=== PATIENT | female | born 2000 | race Caucasian/White ===

== ENCOUNTER 2024-08-19 13:12 | Emergency (ER) | payer SELFPAY ==
[2024-08-19 13:43] VITALS: TEMP 97.2
[2024-08-19] MEDS ORDERED: OFIRMEV IV STA (13:53)
[2024-08-19 14:10] LABS: Absolute Neutrophil Ct (ANC) 3.19 x10^3/uL (1.56-6.13); Basophil (Absolute #) 0.06 x10^3/uL (0.01-0.08); Eosinophil (Absolute #) 0.24 x10^3/uL (0.04-0.36); Hematocrit 39.6 % (34.1-44.9); Hemoglobin 12.6 g/dL (11.2-15.7); IMMATURE GRAN # 0.01 x10^3u/L (0.001-0.031); IMMATURE GRAN % 0.2 % (0.001-0.429); Lymphocytes % 33.1 % (19.3-51.7); Mean Cell Volume 89.6 fL (79.4-94.8); Mean Corpuscular Hemoglobin 28.5 pg (25.6-32.2); Mean Corpuscular Hgb Concent. 31.8 g/dL (32.2-35.5); Mean Platelet Volume 12.3 fL (9.4-12.3); Monocyte (Absolute #) 0.54 x10^3/uL (0.24-0.86); Monocytes % 8.9 % (4.7-12.5); Neutrophil % 52.8 % (34.0-71.1); Platelet Count 152 x10^3/uL (182-369); Red Blood Count 4.42 x10^6/uL (3.93-5.22); Red Cell Distribution Width 12.5 % (11.7-14.4)
[2024-08-19] MEDS ORDERED: Compazine 10 MG/2 ML ONE (14:15)
[2024-08-19] MEDS ORDERED: Sodium Chloride 0.9% 1000 ML 1,000 ML ONE (14:15)
[2024-08-19] MEDS: Sodium Chloride 0.9% 1000 ML 1,000 ML IV SCH (14:19)
[2024-08-19] MEDS: Compazine 10 MG/2 ML IV ONE (14:21)
--- NOTE | 2024-08-19 14:21 | ERPHSYRPT ---
- History of Present Illness Time Seen by Provider: 08/19/24 13:40 Source: patient Exam Limitations: no limitations Patient Subjective Stated Complaint: Pt states "I had a headache yesterday and passed out. I went to the clinic and they said if I passed out again to go to the er. I passed out in my bedroom around noon." Triage Nursing Assessment: Pt presented alert and oriented X 3, skin pwd. Pt ambulates with an upright steady gait, pt playing on her phone in waiting room. PT able to speak in clear full senteneces. Pt resting comfortably on the bed. Physician History: 23-year-old female no significant past medical history presents to emergency department for evaluation of headache and syncope. Patient states she was at work experiencing a headache and had a syncopal episode. Patient states she came around after couple minutes. Patient was not sent to seek medical attention as they were low on staff coverage. Patient states she was getting ready for work this morning and had a second episode. Patient woke up on the floor. No neck pain no injuries. Patient complains of the same headache she has had for the past 2 days. Pain described as an ache that is localized to the back of her head. No associated chest pain or shortness of breath. No nausea vomiting or diaphoresis. Patient otherwise feels well. She voices no other complaints or concerns at this time. Portions of this note were created with voice recognition technology. There may be grammatical, spelling, punctuation or sound alike errors t Timing/Duration: yesterday Severity: moderate Modifying Factors: Improves With: nothing Associated Symptoms: headaches Allergies/Adverse Reactions: latex Allergy (Severe, Verified 08/19/24 13:49) sulfamethoxazole [From Bactrim] Allergy (Severe, Verified 08/19/24 13:49) trimethoprim [From Bactrim] Allergy (Severe, Verified 08/19/24 13:49) Hx Tetanus, Diphtheria Vaccination/Date Given: No Hx Influenza Vaccination/Date Given: Yes Hx Pneumococcal Vaccination/Date Given: No Immunizations Up to Date: No Travel Risk - International Travel Have you traveled outside of the country in past 3 weeks: No - Emerging Infectious Disease Are you exhibiting symptoms associated with any current EIDs: Yes Symptoms: Headaches/Body Aches/ - Review of Systems Constitutional: No Symptoms, No Fever, No Chills Eyes: No Symptoms Ears, Nose, & Throat: No Symptoms Respiratory: No Symptoms, No Cough, No Dyspnea Cardiac: No Symptoms, No Chest Pain, No Edema, No Syncope Abdominal/Gastrointestinal: No Symptoms, No Abdominal Pain, No Nausea, No Vomiting, No Diarrhea Genitourinary Symptoms: No Symptoms, No Dysuria Musculoskeletal: No Symptoms, No Back Pain, No Neck Pain Skin: No Symptoms, No Rash Neurological: No Symptoms, No Dizziness, No Focal Weakness, No Sensory Changes Psychological: No Symptoms Endocrine: No Symptoms Hematologic/Lymphatic: No Symptoms Immunological/Allergic: No Symptoms All Other Systems: Reviewed and Negative - Past Medical History Pertinent Past Medical History: Yes Psycho-Social History: Depression - Past Surgical History Past Surgical History: No - Female History Hx Last Menstrual Period: 08/11/2024 Hx Now: No - Social History Smoking Status: Never smoker Exposure to second hand smoke: Yes Drug Use: none - Social Determinants of Health Will the patient participate in the screening: Declined to provide - Nursing Vital Signs Nursing Vital Signs: Initial Vital Signs Temperature 97.2 F 08/19/24 13:37 Pulse Rate 64 08/19/24 13:37 Respiratory Rate 18 08/19/24 13:37 Blood Pressure 105/69 08/19/24 13:37 O2 Sat by Pulse Oximetry 100 08/19/24 13:37 Pain Scale Pain Intensity 0 - Physical Exam General Appearance: no apparent distress, alert Eye Exam: PERRL/EOMI, eyes nml inspection Ears, Nose, Throat Exam: normal ENT inspection, TMs normal, pharynx normal, moist mucous membranes Neck Exam: normal inspection, non-tender, supple, full range of motion Respiratory Exam: normal breath sounds, lungs clear, airway intact, No respirato ry distress Cardiovascular Exam: regular rate/rhythm, normal heart sounds, normal peripheral pulses Gastrointestinal/Abdomen Exam: soft, normal bowel sounds, No tenderness, No mass Back Exam: normal inspection, normal range of motion, No CVA tenderness, No vertebral tenderness Extremity Exam: normal inspection, normal range of motion, pelvis stable Neurologic Exam: alert, oriented x 3, cooperative, normal mood/affect, sensation nml, No motor deficits Skin Exam: normal color, warm, dry, No rash Lymphatic Exam: No adenopathy SpO2 Interpretation: normal SpO2: 100 O2 Delivery: Room Air - Course Nursing assessment & vital signs reviewed: Yes EKG Interpreted by Me: RATE ([id number]), Sinus Rhythm, NORMAL AXIS, NORMAL INTERVALS, NORMAL QRS Ordered Tests: Active Orders 24 hr Category Date Time Status AMA [Release AMA] OM.NOW Care 08/19/24 19:22 Active Automobile Mechanic Motor STAT Care 08/19/24 13:52 Active EKG-ER Only STAT Care 08/19/24 13:51 Active IV Insertion STAT Care 08/19/24 13:51 Active HEAD WITHOUT CONTRAST [CT] Stat Exams 08/19/24 13:50 Taken CBC W DIFF Stat Lab 08/19/24 14:00 Completed CMP Stat Lab 08/19/24 14:00 Completed CULTURE,URINE Stat Lab 08/19/24 16:30 Received ETHYL ALCOHOL Stat Lab 08/19/24 14:00 Completed HCG QUALITATIVE, URINE Stat Lab 08/19/24 16:30 Completed TROPONIN Q4H Lab 08/19/24 14:00 Completed TROPONIN Q4H Lab 08/19/24 17:20 Completed TROPONIN Q4H Lab 08/19/24 22:00 Ordered TSH [TSH, 3RD Generation] Stat Lab 08/19/24 14:00 Completed UA W/RFX UR CULTURE Stat Lab 08/19/24 16:30 Completed Urine Triage Profile Stat Lab 08/19/24 16:30 Completed Medication Summary Generic Name Dose Route Start Last Admin Trade Name Freq PRN Reason Stop Dose Admin Sodium Chloride 1,000 mls @ 100 mls/hr 08/19/24 14:00 08/19/24 14:19 Sodium Chloride 0.9% 1000 Ml IV 09/18/24 13:59 100 mls/hr .Q10H ISAIAH Administration Discontinued Medications Generic Name Dose Route Start Last Admin Trade Name Freq PRN Reason Stop Dose Admin Acetaminophen 1,000 mg in 100 mls @ 400 mls/hr 08/19/24 18:57 08/19/24 18:58 Ofirmev IV 08/19/24 19:11 400 mls/hr 1HRPRIOR ONE Administration Acetaminophen Confirm 08/19/24 18:55 Ofirmev Administered 08/19/24 18:56 Dose 100 mls @ ud IV .STK-MED ONE Ketorolac Tromethamine 30 mg 08/19/24 18:53 08/19/24 18:55 Ketorolac Tromethamine 30 Mg/Ml Inj IV 08/19/24 18:54 30 mg STAT ONE Administration Ketorolac Tromethamine Confirm 08/19/24 18:55 Ketorolac Tromethamine 30 Mg/Ml Inj Administered 08/19/24 18:56 Dose 30 mg .ROUTE .STK-MED ONE Prochlorperazine Edisylate 10 mg 08/19/24 13:52 08/19/24 14:21 Prochlorperazine Edisylate 10 Mg/2 Ml Vial IV 08/19/24 13:53 10 mg STAT ONE Administration Prochlorperazine Edisylate Confirm 08/19/24 14:15 Prochlorperazine Edisylate 10 Mg/2 Ml Vial Administered 08/19/24 14:16 Dose 10 mg .ROUTE .[employer] ONE Lab/Rad Data: Laboratory Result Diagrams 08/19/24 14:00 08/19/24 14:00 Laboratory Results 08/19/24 08/19/24 08/19/24 Range/Units 17:20 16:30 16:30 WBC (3.98-10.04) x10^3/uL RBC (3.93-5.22) x10^6/uL Hgb (11.2-15.7) g/dL Hct (34.1-44.9) % MCV (79.4-94.8) fL MCH (25.6-32.2) pg MCHC (32.2-35.5) g/dL RDW (11.7-14.4) % Plt Count (182-369) x10^3/uL MPV (9.4-12.3) fL Gran % (34.0-71.1) % Immature Gran % (Auto) (0.001-0.429) % Nucleat RBC Rel Count (0.00-0.2) % Eos # (Auto) (0.04-0.36) x10^3/uL Immature Gran # (Auto) (0.001-0.031) x10^3u/L Absolute Lymphs (auto) (1.18-3.74) x10^3/uL Absolute Monos (auto) (0.24-0.86) x10^3/uL Absolute Nucleated RBC (0.00-0.012) x10^3u/L Lymphocytes % (19.3-51.7) % Monocytes % (4.7-12.5) % Eosinophils % (0.7-5.8) % Basophils % (0.1-1.2) % Absolute Granulocytes (1.56-6.13) x10^3/uL Basophils # (0.01-0.08) x10^3/uL Sodium (135-145) mmol/L Potassium (3.5-5.1) mmol/L Chloride (98-107) mmol/L Carbon Dioxide (22-30) mmol/L Anion Gap (5-15) MEQ/L BUN (7-17) mg/dL Creatinine (0.52-1.04) mg/dL Estimated GFR ML/MIN Glucose (74-106) mg/dL Calcium (8.4-10.2) mg/dL Total Bilirubin (0.2-1.3) mg/dL AST (14-36) U/L ALT (0-35) U/L Alkaline Phosphatase (38-126) U/L Troponin I < 0.012 (0.000-0.033) ng/mL Serum Total Protein (6.3-8.2) g/dL Albumin (3.5-5.0) g/dL TSH 3rd Generation (0.470-4.680) mIU/L Urine Color (Yellow) Urine Appearance (Clear) Urine pH (4.6-8.0) Ur Specific [place] (1.005-1.030) Urine Protein (Negative) Urine Glucose (UA) (Negative) mg/dL Urine Ketones (Negative) Urine Blood (Negative) Urine Nitrite (Negative) Urine Bilirubin (Negative) Urine Urobilinogen (0.2) mg/dL Ur Leukocyte Esterase (Negative) U Hyaline Cast (Auto) (0-2) /LPF Urine Microscopic RBC (0-5) /HPF Urine Microscopic WBC (0-5) /HPF Ur Epithelial Cells (None Seen) /HPF Urine Bacteria (None Seen) /HPF Urine Culture Reflexed (NO) Urine HCG, Qual NEGATIVE (NEGATIVE) Urine Opiates Level NEGATIVE (NEGATIVE) Ur Methadone NEGATIVE (NEGATIVE) Urine Barbiturates NEGATIVE (NEGATIVE) Ur Phencyclidine (PCP) NEGATIVE (NEGATIVE) Urine Amphetamine NEGATIVE (NEGATIVE) U Benzodiazepine Level NEGATIVE (NEGATIVE) Urine Cocaine NEGATIVE (NEGATIVE) Urine Marijuana (THC) NEGATIVE (NEGATIVE) Ethyl Alcohol (0-10) mg/dL 08/19/24 08/19/24 08/19/24 Range/Units 16:30 14:00 14:00 WBC (3.98-10.04) x10^3/uL RBC (3.93-5.22) x10^6/uL Hgb (11.2-15.7) g/dL Hct (34.1-44.9) % MCV (79.4-94.8) fL MCH (25.6-32.2) pg MCHC (32.2-35.5) g/dL RDW (11.7-14.4) % Plt Count (182-369) x10^3/uL MPV (9.4-12.3) fL Gran % (34.0-71.1) % Immature Gran % (Auto) (0.001-0.429) % Nucleat RBC Rel Count (0.00-0.2) % Eos # (Auto) (0.04-0.36) x10^3/uL Immature Gran # (Auto) (0.001-0.031) x10^3u/L Absolute Lymphs (auto) (1.18-3.74) x10^3/uL Absolute Monos (auto) (0.24-0.86) x10^3/uL Absolute Nucleated RBC (0.00-0.012) x10^3u/L Lymphocytes % (19.3-51.7) % Monocytes % (4.7-12.5) % Eosinophils % (0.7-5.8) % Basophils % (0.1-1.2) % Absolute Granulocytes (1.56-6.13) x10^3/uL Basophils # (0.01-0.08) x10^3/uL Sodium 141 (135-145) mmol/L Potassium 3.9 (3.5-5.1) mmol/L Chloride 106 (98-107) mmol/L Carbon Dioxide 27 (22-30) mmol/L Anion Gap 11.2 (5-15) MEQ/L BUN 16 (7-17) mg/dL Creatinine 0.80 (0.52-1.04) mg/dL Estimated GFR 107.4 ML/MIN Glucose 93 (74-106) mg/dL Calcium 9.2 (8.4-10.2) mg/dL Total Bilirubin 0.30 (0.2-1.3) mg/dL AST 24 (14-36) U/L ALT 13 (0-35) U/L Alkaline Phosphatase 63 (38-126) U/L Troponin I < 0.012 (0.000-0.033) ng/mL Serum Total Protein 7.1 (6.3-8.2) g/dL Albumin 4.3 (3.5-5.0) g/dL TSH 3rd Generation (0.470-4.680) mIU/L Urine Color Yellow (Yellow) Urine Appearance Clear (Clear) Urine pH 6.5 (4.6-8.0) Ur Specific [place] >=1.030 A (1.005-1.030) Urine Protein 100 A (Negative) Urine Glucose (UA) Negative (Negative) mg/dL Urine Ketones Negative (Negative) Urine Blood Trace (Negative) Urine Nitrite Negative (Negative) Urine Bilirubin Negative (Negative) Urine Urobilinogen 1.0 A (0.2) mg/dL Ur Leukocyte Esterase Small A (Negative) U Hyaline Cast (Auto) 3-5 A (0-2) /LPF Urine Microscopic RBC 0-2 (0-5) /HPF Urine Microscopic WBC 11-20 A (0-5) /HPF Ur Epithelial Cells Few (None Seen) /HPF Urine Bacteria Rare A (None Seen) /HPF Urine Culture Reflexed YES (NO) Urine HCG, Qual (NEGATIVE) Urine Opiates Level (NEGATIVE) Ur Methadone (NEGATIVE) Urine Barbiturates (NEGATIVE) Ur Phencyclidine (PCP) (NEGATIVE) Urine Amphetamine (NEGATIVE) U Benzodiazepine Level (NEGATIVE) Urine Cocaine (NEGATIVE) Urine Marijuana (THC) (NEGATIVE) Ethyl Alcohol < 10 (0-10) mg/dL 08/19/24 08/19/24 Range/Units 14:00 14:00 WBC 6.0 (3.98-10.04) x10^3/uL RBC 4.42 (3.93-5.22) x10^6/uL Hgb 12.6 (11.2-15.7) g/dL Hct 39.6 (34.1-44.9) % MCV 89.6 (79.4-94.8) fL MCH 28.5 (25.6-32.2) pg MCHC 31.8 L (32.2-35.5) g/dL RDW 12.5 (11.7-14.4) % Plt Count 152 L (182-369) x10^3/uL MPV 12.3 (9.4-12.3) fL Gran % 52.8 (34.0-71.1) % Immature Gran % (Auto) 0.2 (0.001-0.429) % Nucleat RBC Rel Count 0.0 (0.00-0.2) % Eos # (Auto) 0.24 (0.04-0.36) x10^3/uL Immature Gran # (Auto) 0.01 (0.001-0.031) x10^3u/L Absolute Lymphs (auto) 2.00 (1.18-3.74) x10^3/uL Absolute Monos (auto) 0.54 (0.24-0.86) x10^3/uL Absolute Nucleated RBC 0.00 (0.00-0.012) x10^3u/L Lymphocytes % 33.1 (19.3-51.7) % Monocytes % 8.9 (4.7-12.5) % Eosinophils % 4.0 (0.7-5.8) % Basophils % 1.0 (0.1-1.2) % Absolute Granulocytes 3.19 (1.56-6.13) x10^3/uL Basophils # 0.06 (0.01-0.08) x10^3/uL Sodium (135-145) mmol/L Potassium (3.5-5.1) mmol/L Chloride (98-107) mmol/L Carbon Dioxide (22-30) mmol/L Anion Gap (5-15) MEQ/L BUN (7-17) mg/dL Creatinine (0.52-1.04) mg/dL Estimated GFR ML/MIN Glucose (74-106) mg/dL Calcium (8.4-10.2) mg/dL Total Bilirubin (0.2-1.3) mg/dL AST (14-36) U/L ALT (0-35) U/L Alkaline Phosphatase (38-126) U/L Troponin I (0.000-0.033) ng/mL Serum Total Protein (6.3-8.2) g/dL Albumin (3.5-5.0) g/dL TSH 3rd Generation 1.465 (0.470-4.680) mIU/L Urine Color (Yellow) Urine Appearance (Clear) Urine pH (4.6-8.0) Ur Specific [place] (1.005-1.030) Urine Protein (Negative) Urine Glucose (UA) (Negative) mg/dL Urine Ketones (Negative) Urine Blood (Negative) Urine Nitrite (Negative) Urine Bilirubin (Negative) Urine Urobilinogen (0.2) mg/dL Ur Leukocyte Esterase (Negative) U Hyaline Cast (Auto) (0-2) /LPF Urine Microscopic RBC (0-5) /HPF Urine Microscopic WBC (0-5) /HPF Ur Epithelial Cells (None Seen) /HPF Urine Bacteria (None Seen) /HPF Urine Culture Reflexed (NO) Urine HCG, Qual (NEGATIVE) Urine Opiates Level (NEGATIVE) Ur Methadone (NEGATIVE) Urine Barbiturates (NEGATIVE) Ur Phencyclidine (PCP) (NEGATIVE) Urine Amphetamine (NEGATIVE) U Benzodiazepine Level (NEGATIVE) Urine Cocaine (NEGATIVE) Urine Marijuana (THC) (NEGATIVE) Ethyl Alcohol (0-10) mg/dL - Progress Progress: improved Progress Note: 23-year-old female presents to emergency department for evaluation of 2 syncopal episodes associated with a headache. Physical exam presenting unremarkable. CT head negative for acute intracranial pathology. Laboratory workup reveals a urinary tract infection otherwise negative. A prescription for Macrobid forwarded to patient's pharmacy. IV fluids and Compazine administered. In light of the syncope and headache we intended patient to have a teleneuro consultation. However patient advised us that she needed to get home quickly to address an issue regarding her children. Patient could not wait for teleneuro consultation. Patient left AMA. Patient is of sound mind. Patient is appropriate to make informed and independent medical decisions. Patient understands that leaving AGAINST MEDICAL ADVICE can result in delayed diagnosis, increased risk of morbidity, mortality, short and long-term disability including . In spite of these risks, patient has decided to leave AGAINST MEDICAL ADVICE. Patient understands that she may return to our ED at any point if she reconsiders. Patient agrees to follow-up with her primary care doctor within 48 hours for reevaluation. Patient voices no other complaints or concerns at this time. We will release patient AGAINST MEDICAL ADVICE per their request. Portions of this note were created with voice recognition technology. There may be grammatical, spelling, punctuation or sound alike errors Complexity of problem addressed is moderate acute complicated no critical care time. Complex of data reviewed and analyzed is moderate. Test ordered chest reviewed results analyzed and correlated clinically with history and physical exam. Risk of complication and or risk of morbidity/mortality of patient management is moderate. A prescription for Macrobid forwarded to patient's pharmacy. Vital stable. Time spent to discharge patient approximately 10 minutes. Plan of care established for shared decision making. No social determinants of health present to impede follow-up. Portions of this note were created with voice recognition technology. There may be grammatical, spelling, punctuation or sound alike errors 08/19/24 19:26 Counseled pt/family regarding: lab results, diagnosis, need for follow-up, rad r esults - Departure Departure Disposition: AMA Clinical Impression: Syncope and collapse, Headache, UTI (urinary tract infection) Condition: Stable Critical Care Time: No Referrals: DESHAWN GUZMAN [employer] SUPERVISOR [Primary Care Provider] - Follow up/PCP as directed Additional Instructions: Discharge/Care Plan SAUL PADILLA was seen on 08/19/24 in the Emergency Room. The patient was counseled regarding Diagnosis,Lab results, Imaging studies, need for follow up and when to return to the Emergency Room. Prescriptions given: Discharge Note I have spoken with the patient and/or caregivers. I have explained the patient's condition, diagnosis and treatment plan based on the information available to me at this time. I have answered the patient's and/or caregiver's questions and addressed any concerns. The patient and/or caregivers have as good understanding of the patient's diagnosis, condition and treatment plan as can be expected at this point. The vital signs have been stable. The patient's condition is stable and appropriate for discharge from the emergency department. The patient will pursue further outpatient evaluation with the primary care physician or other designated or consulting physician as outlined in the discharge instructions. The patient and/or caregivers are agreeable to this plan of care and follow-up instructions have been explained in detail. The patient and/or caregivers have received these instruction. The patient/and or caregivers are aware that any significant change in condition or worsening of symptoms should prompt an immediate return to this or the closest emergency department or call 911. Prescriptions: Nitrofurantoin Macro 100 mg [Macrobid 100MG Capsule] 100 mg PO BID 7 Days #14 cap
[2024-08-19 14:40] LABS: ALBUMIN 4.3 g/dL (3.5-5.0); ALKALINE PHOSPHATASE 63 U/L (38-126); ANION GAP 11.2 MEQ/L (5-15); CHLORIDE 106 mmol/L (98-107); Calcium 9.2 mg/dL (8.4-10.2); Carbon Dioxide 27 mmol/L (22-30); ETHYL ALCOHOL < 10 mg/dL (0-10); Glucose 93 mg/dL (74-106); Potassium 3.9 mmol/L (3.5-5.1); SGOT/AST 24 U/L (14-36); SGPT/ALT 13 U/L (0-35); SODIUM 141 mmol/L (135-145); Total Protein 7.1 g/dL (6.3-8.2)
[2024-08-19 14:45] LABS: BLOOD UREA NITROGEN 16 mg/dL (7-17); EST GLOMERULAR FILTRATION RATE 107.4 ML/MIN
[2024-08-19 17:10] LABS: HCG URINE TEST NEGATIVE (NEGATIVE)
[2024-08-19 17:18] LABS: Appearance Clear (Clear); Bacteria Rare /HPF (None Seen); Bilirubin Negative (Negative); Blood Trace (Negative); Epithelial Cells Few /HPF (None Seen); Glucose, Urine Negative (Negative); Ketones Negative (Negative); Leukocyte Esterase Small (Negative); Nitrite Negative (Negative); Ph 6.5 (4.6-8.0); Protein,Urine Dip 100 (Negative); RBC 0-2 /HPF (0-5); Specific Gravity >=1.030 (1.005-1.030)
[2024-08-19 17:25] VITALS: BP 100/59
[2024-08-19 17:50] LABS: Amphetamine,Urine NEGATIVE (NEGATIVE); Barbiturate,Urine NEGATIVE (NEGATIVE); Benzodiazepine,Urine NEGATIVE (NEGATIVE); Cocaine,Urine NEGATIVE (NEGATIVE); Methadone,Urine NEGATIVE (NEGATIVE); Opiate,Urine NEGATIVE (NEGATIVE); PCP,Urine NEGATIVE (NEGATIVE); THC,Urine NEGATIVE (NEGATIVE)
[2024-08-19 18:04] VITALS: RESP 12
[2024-08-19] MEDS ORDERED: TORAdol 30 mg Injection ONE (18:55)
[2024-08-19] MEDS: TORAdol 30 mg Injection IV ONE (18:55)
[2024-08-19] MEDS ORDERED: OFIRMEV 100 ML IV ONE (18:55)
[2024-08-19] MEDS: OFIRMEV 1,000 MG/100 ML ML IV ONE (18:58)
[2024-08-19 19:18] VITALS: PULSE 64
[2024-08-19 19:29] VITALS: O2SAT 100
--- NOTE | 2024-08-20 08:34 | XRAY ---
Indication: Syncope. Headache. Multiple contiguous axial images obtained through the head without contrast. Comparison: None Right ear ring produces beam artifact. Grossly normal appearing brain parenchyma, ventricles, and bony calvarium. Visualized paranasal sinuses and mastoid air cells are clear. Impression: Normal head.
== END 2024-08-19 19:31 | disposition left against medical advice (07) ==
LOC: ED 13:12
DX: R55 Syncope and collapse (principal); R51.9 Headache, unspecified; N39.0 Urinary tract infection, site not specified
CPT/HCPCS: 36415; 70450; 80053; 80307; 81001; 81025; 82077; 84443; 84484; 85025; 87086; 93005; 93041; 96374; 96375; 99284; 99285; J1885